=== PATIENT | female | born 1955 | race Caucasian/White ===

== ENCOUNTER 2019-10-04 12:49 | Outpatient (CLI) | payer MEDICARE, SELFPAY ==
--- NOTE | ~2019-10-04 | DEXA_ITS ---
Bone Density Report Name: Elise Leonardo Age: 64 Sex: Female Ethnicity: White Date of : 1955 Indication: postmenopausal; height loss; cancer; hysterectomy; Referring Provider: BRINA BORJA Study: Bone densitometry was performed. Exam Date: October 04, 2019 Accession number: [id number] Bone Density: Region BMD T-score Z-score Classification AP Spine (L1-L4) 0.965 -0.7 1.1 Normal Femoral Neck (Left) 0.822 -0.2 1.3 Normal Total Hip (Left) 1.001 0.5 1.7 Normal Total Hip Bilateral Avg 0.987 0.4 1.6 Normal Femoral Neck (Right) 0.907 0.5 2.1 Normal Total Hip (Right) 0.971 0.2 1.5 Normal World Health Organization criteria for BMD impression classify patients as: Normal (T-score at or above -1.0), Osteopenia (T-score between -1.0 and -2.5), or Osteoporosis (T-score at or below -2.5). 10-year Fracture Risk: FRAX not reported because: All T-scores for Spine Total, Hip Total, Femoral Neck at or above -1.0 Previous Exams: Region Exam Age BMD T-score BMD Change BMD Change Date g/cm2 vs Baseline vs Previous AP Spine(L1-L4) 10/04/2019 64 0.965 -0.7 -0.140(-12.7%) -0.090(-8.5%)# 09/09/2012 57 1.055 0.1 -0.050(-4.5%)# -0.050(-4.5%)# 01/27/2008 53 1.105 0.5 Total Hip(Left) 10/04/2019 64 1.001 0.5 -0.076(-7.0%)# -0.030(-2.9%)# 09/09/2012 57 1.031 0.7 -0.046(-4.3%)# -0.046(-4.3%)# 01/27/2008 53 1.077 1.1 Total Hip(Right) 10/04/2019 64 0.971 0.2 -0.100(-9.3%)# -0.061(-5.9%)# 09/09/2012 57 1.032 0.7 -0.039(-3.6%)# -0.039(-3.6%)# 01/27/2008 53 1.071 1.1 *Denotes significance at 95% confidence level, LSC for AP Spine = 0.022 g/cm2, LSC for Total Hip = 0.027 g/cm2 Clinical Information Provided by Patient: Has used the following medications: Vitamin D Has the following medical conditions: Cancer, Hysterectomy Patient maximum height was 68 Menopause Age: 41 Drinks caffeinated beverages Onset of menses at age 12 Number of children 0 Impression: The patient has normal bone mass. No significant bone loss was observed. Discussion: BONE DENSITY IS ABOVE THE MINIMUM DESIRABLE LEVEL AT ALL SKELETAL SITES TESTED. This patient?s bone mineral density is above the minimum desirable level (T-score -1.0 or better) at all sites measured. The patient should follow a healthful lifestyle (good nutrition with adequate calcium and vitamin D, and appropriate weight-bearing exercise). Follow-Up: Consider repeating thi
== END 2019-10-04 12:50 | disposition home or self-care (01) ==
LOC: ANHIMG 13:01
PROVIDERS: Visit Provider Internal Medicine Medical Oncology
DX: C50.911 Malignant neoplasm of unspecified site of right female breast (principal); Z17.0 Estrogen receptor positive status [ER+]; Z79.83 Long term (current) use of bisphosphonates
CPT/HCPCS: 77080

== ENCOUNTER 2023-05-28 11:44 | Outpatient (CLI) | payer MEDICARE, SELFPAY ==
[2023-05-28 12:38] LABS: Basophils Percent Auto 0.4 % (0.2-1.2); Eosinophils Absolute Auto 0.2 K/mm3 (0-0.3); Eosinophils Percent Auto 3.1 % (0-4.4); Hematocrit 47.2 % (37.0-47.0); Hemoglobin 15.1 g/dL (12.0-15.0); Immature Granulocyte Absolute 0.03 K/mm3 (0.00-0.031); Immature Granulocyte Percent A 0.4 % (0-0.5); Lymphocytes Percent Auto 27.9 % (18.3-44.2); Mean Corpuscular Hemoglobin 29.3 pg (26-34); Mean Corpuscular Volume 91.7 fl (80-100); Mean Platelet Volume 11.9 fl (7.4-10.4); Monocytes Absolute Auto 0.6 K/mm3 (0.1-0.6); Monocytes Percent Auto 7.9 % (2.6-8.5); Neutrophils Absolute Auto 4.3 K/mm3 (1.3-6.7); Neutrophils Percent Auto 60.3 % (45.5-73.1); Platelet Count Result 191 k/mm3 (150-375); Red Blood Count 5.15 M/mm3 (4.2-5.4); Red Cell Distribution Width 13.4 % (11.5-14.5); White Blood Count 7.2 K/mm3 (4.5-10.0)
[2023-05-28 13:12] LABS: Hemoglobin A1C 8.6 % (<5.7)
[2023-05-28 13:22] LABS: Alanine Aminotransferase 27 U/L (6-35); Albumin Level 4.2 g/dL (3.5-5.1); Alkaline Phosphatase 75 U/L (38-126); Anion Gap 10 mmol/L (8-16); Aspartate Amino Transferase 21 U/L (14-36); Bilirubin,Total 0.7 mg/dL (0.2-1.3); Blood Urea Nitrogen 18 mg/dL (7-17); Calcium 9.1 mg/dL (8.4-10.2); Carbon Dioxide 28 mmol/L (22-30); Chloride 102 mmol/L (98-107); Estimated Glomerular Filt Rate > 60; Glucose 200 mg/dL (65-110); Potassium 3.7 mmol/L (3.4-5.0); Sodium 140 mmol/L (137-145)
[2023-05-30 14:43] LABS: Arsenic, Blood <3 mcg/L (<23); Lead, Blood <1.0 mcg/dL (<3.5); Mercury, Blood <4 mcg/L (<=10)
[2023-05-31 12:07] LABS: Red Blood Cell Folate 567 ng/mL RBC (>280)
[2023-06-01 14:01] LABS: Vitamin B6 20.6 ng/mL (2.1-21.7)
[2023-06-02 12:07] LABS: SS-A <1.0; SS-B <1.0
[2023-06-04 06:10] LABS: Anti Nuclear Antibody Pattern Nuclear, Speckled
[2023-06-10 14:55] LABS: Collection Sample Blood
== END 2023-05-28 11:45 | disposition home or self-care (01) ==
PROVIDERS: Visit Provider Student in an Organized Health Care Education/Training Program
DX: E11.9 Type 2 diabetes mellitus without complications (principal); G62.9 Polyneuropathy, unspecified
CPT/HCPCS: 36415; 80053; 82175; 82607; 82747; 83036; 83655; 83825; 84207; 84443; 85025; 86038; 86039; 86235; 86334; 86335

== ENCOUNTER 2024-03-16 13:37 | Outpatient (CLI) | payer MEDICARE, SELFPAY ==
[2024-03-16 14:03] LABS: Basophils Absolute Auto 0.1 K/mm3 (0.0-0.1); Basophils Percent Auto 0.6 % (0.2-1.2); Eosinophils Absolute Auto 0.2 K/mm3 (0-0.3); Hematocrit 47.7 % (37.0-47.0); Hemoglobin 15.6 g/dL (12.0-15.0); Immature Granulocyte Absolute 0.05 K/mm3 (0.00-0.031); Immature Granulocyte Percent A 0.5 % (0-0.5); Lymphocytes Absolute Auto 2.64 K/mm3 (0.9-3.2); Lymphocytes Percent Auto 25.1 % (18.3-44.2); Mean Corpuscular HGB Conc 32.7 g/dl (32-36); Mean Corpuscular Hemoglobin 29.9 pg (26-34); Mean Corpuscular Volume 91.6 fl (80-100); Mean Platelet Volume 11.1 fl (7.4-10.4); Monocytes Absolute Auto 0.9 K/mm3 (0.1-0.6); Monocytes Percent Auto 8.7 % (2.6-8.5); Neutrophils Absolute Auto 6.6 K/mm3 (1.3-6.7); Neutrophils Percent Auto 63.1 % (45.5-73.1); Platelet Count Result 294 k/mm3 (150-375); Red Blood Count 5.21 M/mm3 (4.2-5.4); Red Cell Distribution Width 13.3 % (11.5-14.5); White Blood Count 10.5 K/mm3 (4.5-10.0)
[2024-03-16 16:33] LABS: Alanine Aminotransferase 29 U/L (6-35); Albumin Level 4.4 g/dL (3.5-5.1); Alkaline Phosphatase 71 U/L (38-126); Anion Gap 14 mmol/L (4-12); Aspartate Amino Transferase 25 U/L (14-36); Bilirubin,Total 0.5 mg/dL (0.2-1.3); Blood Urea Nitrogen 25 mg/dL (7-17); Calcium 9.9 mg/dL (8.4-10.2); Carbon Dioxide 25 mmol/L (22-30); Chloride 98 mmol/L (98-107); Estimated Glomerular Filt Rate > 60; Glucose 209 mg/dL (65-110); Potassium 3.8 mmol/L (3.4-5.0); Sodium 137 mmol/L (137-145)
[2024-03-16 17:04] LABS: Immunoglobulin A 346 mg/dL (70-400); Immunoglobulin G 811 mg/dL (700-1600); Immunoglobulin M 160 mg/dL (40-230)
[2024-03-18 03:43] LABS: Protein, Total 7.2 g/dL (6.1-8.1)
[2024-03-18 11:53] LABS: Lambda Light Chain 16.1 mg/L (5.7-26.3)
[2024-03-24 15:13] LABS: Albumin 4.2 g/dL (3.8-4.8); Alpha 1 Globulin 0.3 g/dL (0.2-0.3); Alpha 2 Globulin 0.9 g/dL (0.5-0.9); Beta 1 Globulin 0.5 g/dL (0.4-0.6); Gamma Globulin 0.8 g/dL (0.8-1.7)
== END 2024-03-16 13:38 | disposition home or self-care (01) ==
LOC: ANHLAB 13:40
PROVIDERS: Visit Provider Internal Medicine Hematology & Oncology
DX: D72.9 Disorder of white blood cells, unspecified (principal)
CPT/HCPCS: 36415; 80053; 82784; 83883; 84155; 84165; 85025

== ENCOUNTER 2024-03-16 14:54 | Outpatient (CLI) | payer MEDICARE, SELFPAY ==
--- NOTE | ~2024-03-16 | XR_ITS ---
EXAMINATION: XR bone survey comp/metastic DATE: 03/16/2024 16:01 INDICATION: Disorder of white blood cells, unspecified. Plasma cell abnormality. TECHNIQUE: 31 views of a skeletal survey were obtained. COMPARISON: None. FINDINGS: There are surgical clips in right axilla. There is severe cervical spondylosis. There is mo derate thoracic spondylosis and severe lower lumbar spondylosis. There are surgical clips overlying t he abdomen and pelvis. IMPRESSION: 1. No evidence of multiple myeloma. Reviewed, dictated and finalized at location A.
== END 2024-03-16 14:55 | disposition home or self-care (01) ==
LOC: ANHIMG 15:01
PROVIDERS: Visit Provider Internal Medicine Hematology & Oncology
DX: D72.9 Disorder of white blood cells, unspecified (principal)
CPT/HCPCS: 36415; 77075; 80053; 82784; 83883; 84155; 84165; 85025

== ENCOUNTER 2024-12-14 10:27 | Outpatient (CLI) | payer MEDICARE, SELFPAY ==
--- OUTSIDE RECORDS SUMMARY | 2024-12-14 10:36 | XMS_ITS | Encounter Summary ---
Author Organization [facility] Address 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 Oncology and Hematology [place] [address] [place] [address] [facility] [address] [place] [address] Roshan Gan MD [address] [facility] [address] [place] [address] documented as of this encounter Visit Diagnoses Not on filedocumented in this encounter Additional Health Concerns Infection Onset Date Last Indicated Resolved Time R/O COVID-19 07/19/2020 07/19/2020 07/26/2021 9:08 PM FUR BLOWING MACHINE OPERATOR documented as of this encounter Care Teams Cocoa Bean Cleaner Relationship Specialty Start Date End Date Janusz Soto MD PCP - General 08/30/08 documented as of this encounter
--- OUTSIDE RECORDS SUMMARY | 2024-12-14 10:36 | XMS_ITS | Encounter Summary ---
Author Organization [facility] Address 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 Oncology and Hematology - [place] [address] [place] [address] [facility] [address] [place] [address] Roshan Gan MD [address] [facility] [address] [place] [address] documented as of this encounter Procedures Procedure Name Priority Date/Time Associated Diagnosis Comments CBC WITH DIFFERENTIAL Routine 11/03/2005 5:55 PM CDT CBC WITH DIFFERENTIAL Routine 11/03/2005 5:55 PM CDT COMPREHENSIVE METABOLIC PANEL Routine 11/03/2005 5:55 PM CDT documented in this encounter Results * CBC WITH DIFFERENTIAL (11/03/2005 5:55 PM CDT) NEUTROPHILS 68 45 - 70 % INTERFAC E SYSTEM LYMPHOCYTES 20 16 - 45 % INTERFAC E SYSTEM MONOCYTES 9 3 - 13 % INTERFACE SYSTEM EOSINOPHILS 2 0 - 7 % INTERFAC E SYSTEM BASOPHILS 0 0 - 2 % INTERFACE SYSTEM NEUTROPHIL ABSOLUTE 4.26 1.90 - 7.00 K/uL INTERFACE SYSTEM LYMPHOCYTE ABSOLUTE 1.28 0.70 - 4.50 K/uL INTERFACE SYSTEM MONOCYTE ABSOLUTE 0.57 0.10 - 1.30 K/uL INTERFACE SYSTEM EOSINOPHIL ABSOLUTE 0.13 0.00 - 0.70 K/uL INTERFACE SYSTEM BASOPHILS ABSOLUTE 0.02 0.00 - 0.20 K/uL INTERFACE SYSTEM 11/03/2005 5:55 PM CDT Janusz Soto MD HEMATOLOGY ORDERABLES F inal Result Performing Organization Address City/[facility] Co de Phone Number INTERFACE SYSTEM Refer to clinic/hospital department * (ABNORMAL) CBC WITH DIFFERENTIAL (11/03/2005 5:55 PM CDT) Pathologist [facility] WBC 6.3 4.0 - 9.8 K/uL INTERFACE SYSTEM RBC 5.14(H) 3.90 - 4.90 M/uL INTERFACE SYSTEM HEMOGLOBIN 15.3(H) 11.8 - 14.8 g/dL INTERFACE SYSTEM HEMATOCRIT 45.2(H) 35.5 - 44.0 % INTERFACE SYSTEM MCV 87.9 82.0 - 99.0 fL INTERFACE SYSTEM MCH 29.8 27.2 - 32.6 pg INTERFACE SYSTEM MCHC 33.8 31.5 - 35.5 % INTERFACE SYSTEM RDW 13.8 11.5 - 14.5 % INTERFACE SYSTEM RDW-STDEV 44.9 37.1 - 48.7 fL INTERFACE SYSTEM PLATELETS 232 140 - 350 K/uL INTERFACE SYSTEM Comment:WBC and Platelets ve rified by smear review. MPV 11.6 9.3 - 12.4 fL INTERFACE SYSTEM 11/03/2005 5:55 PM CDT Janusz Soto MD HEMATOLOGY ORDERABLES F inal Result Performing Organization Address City/[facility]/ZIP Co de Phone Number INTERFACE SYSTEM Refer to clinic/hospital department * (ABNORMAL) COMPREHENSIVE METABOLIC PANEL (11/03/2005 5:55 PM CDT) GLUCOSE 131(H) 65 - 109 mg/dL INTERFACE SYSTEM CREATININE 0.8 0.4 - 1.2 mg/dL INTERFACE SYSTEM CALCIUM 9.2 8.6 - 10.2 mg/dL INTERFACE SYSTEM AST 24 12 - 32 U/L INTERFACE SYSTEM ALKALINE PHOSPHATASE 67 35 - 104 U/L INTERFACE SYSTEM ALT 26 0 - 31 U/L INTERFACE SYSTEM BILIRUBIN TOTAL 0.2 0.2 - 1.0 mg/dL INTERFACE SYSTEM ALBUMIN 4.4 3.4 - 4.8 g/dL INTERFACE SYSTEM TOTAL PROTEIN 7.5 6.3 - 8.6 g/dL INTERFACE SYSTEM BUN 16 6 - 20 mg/dL INTERFACE SYSTEM SODIUM 136 135 - 145 mmol/L INTERFACE SYSTEM POTASSIUM 3.6 3.5 - 4.9 mmol/L INTERFACE SYSTEM CHLORIDE 98 96 - 108 mmol/L INTERFACE SYSTEM CO2 26 22 - 30 mmol/L INTERFACE SYSTEM 11/03/2005 5:55 PM CDT us Janusz Soto MD CHEMISTRY ORDERABLES Fi nal Result INTERFACE SYSTEM Refer to clinic/hospital department documented in this encounter Visit Diagnoses Not on filedocumented in this encounter Additional Health Concerns Infection Onset Date Last Indicated Resolved Time R/O COVID-19 07/19/2020 07/19/2020 07/26/2021 9:08 PM DINING ROOM MAID documented as of this encounter Care Teams Respite Care Provider Relationship Specialty Start Date End Date Janusz Soto MD PCP - General 08/30/08 documented as of this encounter
--- OUTSIDE RECORDS SUMMARY | 2024-12-14 10:36 | XMS_ITS | Encounter Summary ---
Author Organization [facility] Address [address] [facility] Attn: Epic Prelude ADT [place]IL[place] EDUARDO [address] Care Team Providers Care Dairy Chemist Name Role Phone Janusz Soto MD Primary Care Provider Unavailable Encounter Details Date Type Department Care Team (Late st Contact Info) Description 12/24/1996 Outpatient Historical Conversion, History Janusz Soto MD NO ADDRESS ON FILE Social History Tobacco Use Types Packs/Day Years Used Date Smoking Tobacco: Never Assessed Comments Unknown Sex and Gender Information Value Date Recorded Sex Assigned at Not on file Legal Sex Female 4:12 AM VITAMIN MANAGER Gender Identity Not on file Sexual Orientation Not on file documented as of this encounter Plan of Treatment Upcoming Encounters Date Type Department Care Team (Late st Contact Info) Description 12/21/2024 1:15 PM CDT Office Visit [facility] Oncology and Hematology [place] [address] [place] [address] [facility] [address] [place] [address] Roshan Gan MD [address] [facility] [address] [place] [address] documented as of this encounter Visit Diagnoses Not on filedocumented in this encounter Additional Health Concerns Infection Onset Date Last Indicated Resolved Time R/O COVID-19 07/19/2020 07/19/2020 07/26/2021 9:08 PM VITAMIN MANAGER documented as of this encounter Care Teams Dairy Chemist Relationship Specialty Start Date End Date Janusz Soto MD PCP - General 08/30/08 documented as of this encounter
--- OUTSIDE RECORDS SUMMARY | 2024-12-14 10:36 | XMS_ITS | Encounter Summary ---
Author Organization [facility] Address 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 [address] [place] [address] documented as of this encounter Visit Diagnoses Not on filedocumented in this encounter Additional Health Concerns Infection Onset Date Last Indicated Resolved Time R/O COVID-19 07/19/2020 07/19/2020 07/26/2021 9:08 PM FORM MAKER PLASTER documented as of this encounter Care Teams Carton Stenciler Relationship Specialty Start Date End Date Janusz Soto MD PCP - General 08/30/08 documented as of this encounter
--- OUTSIDE RECORDS SUMMARY | 2024-12-14 10:36 | XMS_ITS | Clinical Summary ---
Author Organization [facility] Address [address] [place] [address] Phone Care Team Providers Care Hydroelectric Component Machinist Name Role Phone Janusz Soto MD Primary Care Provider Unavailable Allergies No known active allergies Medications pregabalin (LYRICA) 200 mg Capsule Take 150 mg by mouth daily at bedtime. 3 Active atorvastatin (LIPITOR) 10 mg tabletIndication s:Normal routine physical examination take 1 tablet by mouth every day 100 Tablet 3 4 Active hydroCHLOROthiaz alcira 25 mg tabletIndication s:Normal routine physical examination take 1 tablet by mouth every day 100 Tablet 3 4 Active DULoxetine (CYMBALTA) 30 mg Capsule, Delayed Release(E.C.) Take 30 mg by mouth daily. Active blood sugar diagnostic (Ascensia CONTOUR) StripIndications :Diabetes mellitus type 2, diet-controlled ([facility]) Use when checking blood sugar one time daily. DX: E11.9 Use when checking blood sugar one time daily. DX: E11.9 100 Strip 3 4 Active metFORMIN (GLUCOPHAGE XR) 500 mg Extended Release 24 hour tablet Take 2 Tablets (1,000 mg) by mouth 2 times daily with meals. 360 Tablet 3 4 Active multivitamin (DAILY-LEE) tablet Take 1 Tablet by mouth daily. Active aspirin (MIKAYLA CHEWABLE) 81 mg Tablet, Chewable Take 81 mg by mouth daily. Active levothyroxine 125 mcg tablet 1 tablet daily and 4 days a week take extra half tablet. 115 Tablet 2 4 Active omeprazole (PriLOSEC) 40 mg Capsule, Delayed Release(E.C.) TAKE 1 CAPSULE BY MOUTH EVERY DAY 100 Capsule 3 4 Active fluticasone propionate (FLONASE) 50 mcg/spray [place], Suspension nasal inhalerIndicatio ns:Normal routine physical examination USE 1 SPRAY INTO EACH NOSTRIL TWICE A DAY 48 mL 4 4 Active amoxicillin-clav ulanate (AUGMENTIN) 500-125 mg tablet Take 1 Tablet by mouth every 12 hours. 14 Tablet 5 Active Active Problems Patient Care Coordination No te Formatting of this note migh t be different from the original. Primary Care: Janusz Soto MD [place]: [place] [address] [facility] [address] [place] [address] Other: Dr. Shwetha Meza MD Problem Noted Date Diagnosed Date History of 2019 novel coronavirus disease (COVID -19) 08/25/2020 Overweight 08/25/2020 Anxiety state 08/25/2020 Hyperglycemia 09/06/2016 S/P right mastectomy 02/01/2016 Esophageal reflux 05/18/2012 Other hyperlipidemia 04/12/2011 Unspecified essential hypertension 04/12/2011 Obesity, unspecified 04/12/2011 Toxic diffuse goiter without mention of thyrotoxic crisis or storm 04/10/2011 Hypothyroidism 04/10/2011 Osteoporosis, unspecified 04/10/2011 Personal history of malignant neoplasm of breast 04/10/2011 HTN (hypertension) Thyroid disease Hay fever Resolved Problems Problem Noted Date Diagnosed Date Resolved Date Severe obesity (BMI 35.0-39. 9) with comorbidity 02/01/2016 05/11/2019 Malignant neoplasm of female breast 05/11/2019 Overview (12/20/2012): 07/2006; invasive ductal right; T2N2M0- stage II; s/p mast,RT, TRAM recon Encounters Date Type Department Care Team Description 12/13/2024 External Device Data ST[facility] ABSTRACTION Provider, Abstract 12/08/2024 External Device Data ST[facility] ABSTRACTION Provider, Abstract 12/07/2024 External Device Data [facility] ABSTRACTION Provider, Abstract 12/07/2024 External Device Data [facility] ABSTRACTION Provider, Abstract 12/06/2024 External Device Data [facility] ABSTRACTION Provider, Abstract 10/05/2024 External Device Data [facility] ABSTRACTION Provider, Abstract 09/24/2024 External Device Data STL ABSTRACTION Provider, Abstract 09/23/2024 External Device Data [facility] ABSTRACTION Provider, Abstract 09/20/2024 External Device Data STL ABSTRACTION Provider, Abstract from Last 3 Months Immunizations Immunization Administration Dates Next Due (PREVNAR 13)(6 WKS UP) PNEUM OCOCCAL CONJUGATE (PCV13) 0.5 ML, IM 05/11/2019 INFLUENZA VACCINE QUADRIVALE NT 3 YR UP PF IM 06/29/2014 INFLUENZA VACCINE QUADRIVALE NT 6 MOS UP PF IM 05/16/2018,04/29/2017,05/02/2016,2014 Influenza Seasonal Unspecifi ed Formulation IM 05/24/2015 Influenza Vaccine 18+ C.derived Pf Im 04/30/2017 Influenza Vaccine Split 3+ Yrs IM 04/05/2013 Influenza, Unspecified Formulation 05/11/2019, Family History Medical History Relation Name Comments Healthy Brother Hodgkin's lymphoma Brother Heart Disease Father Heart Disease Mother Other Mother diabets Breast Cancer Neg Hx Ovarian Cancer Neg Hx Relation Name Status Comments Brother Father Mother Social History Tobacco Use Types Packs/Day Years Used Date Smoking Tobacco: Never Smokeless Tobacco: Never Tobacco Cessation:Counseling Given: Not Answered Alcohol Use Standard Drinks/Week Comments Yes 0 (1 standard drink = 0.6 oz pur e alcohol) rare Financial Resource Strain Answer Date R ecorded How hard is it for you to pa y for the very basics like food, housing, medical care, and heating? Not hard at all 10/24/2022 Food Insecurity Answer Date Recorded In the past 12 months, have you worried that your food would run out before you had money to buy more? Never true 10/24/2022 In the past 12 months, did y ou run out of food and didn't have money to buy more? Never true 10/24/2022 Transportation Needs Answer Date Record ed In the past 12 months, has l ack of transportation kept you from medical appointments or from getting medications? No 10/24/2022 Lack of Transportation (Non-Medical) Not on file 10/24/2022 Comments No Sex and Gender Information Value Date Recorded Sex Assigned at Not on file Legal Sex Female 4:12 AM MINE INSPECTOR Gender Identity Not on file Sexual Orientation Not on file Occupation Industry Job Start Date Job End Date Not on file Not on file Not on file Not on file Last Filed Vital Signs Vital Sign Reading Time Taken Comments Blood Pressure 116/72 08/08/2024 8:57 AM MINE INSPECTOR Pulse 92 08/08/2024 8:57 AM MINE INSPECTOR Temperature 36.6 C (97.9 F) 08/08/2024 8:57 AM MINE INSPECTOR Respiratory Rate 16 08/08/2024 8:57 AM MINE INSPECTOR Oxygen Saturation 96% 08/08/2024 8:57 AM MINE INSPECTOR Inhaled Oxygen Concentration - - Weight 106.6 kg (235 lb) 08/08/2024 8:57 AM MINE INSPECTOR Height 172.7 cm (5' 8) 08/08/2024 8:57 AM MINE INSPECTOR Body Mass Index 35.73 08/08/2024 8:57 AM MINE INSPECTOR Plan of Treatment Upcoming Encounters Date Type Department Care Team (Late st Contact Info) Description 12/21/2024 1:15 PM CDT Office Visit [facility] Oncology and Hematology - [place] [address] [facility] [address] [place] [address] Roshan Gan MD [address] [facility] [address] [place] [address] Health Maintenance Due Date Last Done Comments DIABETES ANNUAL RETINAL EXAM 01/28/1972 DTAP/TDAP/TD VACCINES (1 - Tdap) 1973 FIT-DNA Q 3 years 1999 FIT/FOBT Q 1 year 1999 Flex Sig/CT Colonography Q 5 years 1999 ZOSTER VACCINE (1 of 2) 01/28/2004 RSV VACCINE (60+ or ) (1 - Risk 60-74 years 1-dose series) 2014 COLORECTAL SCREENING 07/19/2018 07/19/2008 (Previously completed) Colorectal Cancer Screening 07/19/2018 PNEUMOCOCCAL VACCINE 50+ YEA RS (2 of 2 - PPSV23) 07/06/2019 05/11/2019 DIABETES ANNUAL FOOT EXAM 08/25/2021 08/25/2020 COVID-19 Vaccine (4 - 2023-2 5 season) 2024 04/25/2021, 09/21/2020, 08/27/2020 OSTEOPOROSIS SCREENING 10/03/2024 10/04/2019 DIABETES HBA1C Q 6 MONTHS 02/05/20255, 08/08/2024, 08/06/2024, Additional history exists DIABETES MICROALBUMIN ANNUAL SCREEN 03/09/2025 03/09/2024, 11/01/2021, 08/25/2020, Additional history exists LDL CHOLESTEROL ANNUAL 03/09/2025 4, 10/24/2022, 11/01/2021, Additional history exists BREAST CANCER SCREENING 04/05/2025 04/05/20 24, 04/05/2024, 03/31/2023, Additional history exists INFLUENZA VACCINE Completed 08/08/2024, , 04/30/2017, Additional history exists Procedures Procedure Name Priority Date/Time Associated Diagnosis Comments POC HEMOGLOBIN A1C Routine 08/08/2024 8: 25 AM MINE INSPECTOR Uncontrolled type 2 diabetes mellitus with hyperglycemia (CMS/HCC) MAMMO DIAG UNI LEFT 3D DEBBIE W OR WO CAD Routine 04/05/2024 10:21 AM CDT Personal history of malignant neoplasm of breast S/P right mastectomy LIPID PANEL Routine 03/09/2024 12:51 PM CDT Other hyperlipidemia Controlled type 2 diabetes mellitus without complication, without long-term current use of insulin (CMS/HCC) MICROALBUMIN/CREATI NINE RATIO, RANDOM UR Routine 03/09/2024 12:48 PM CDT Controlled type 2 diabetes mellitus without complication, without long-term current use of insulin (CMS/HCC) from Last 3 Months or Most Recently Relevant to Health Maintenance Results * (ABNORMAL) POC HEMOGLOBIN A1C (08/08/2024 8:25 AM MINE INSPECTOR) HGB A1C POC 9.8(A) 4.0 - 6.0 % [facility] KIT LOT NUMBER POC 788 [facility] KIT EXP DATE POC [address] [facility] Blood, capillary 08/08/2024 8:25 AM MINE INSPECTOR us Janusz Soto MD POINT OF CARE TESTING F inal Result [facility] CLIA# [id number] [address] [facility], [place] [address] * MAMMO DIAG UNI LEFT 3D DEBBIE W OR WO CAD (04/05/2024 10:21 AM CDT) Anatomical Region Laterality Modality Breast Left Mammography 04/05/2024 10:2 1 AM CDT Impressions 04/05/2024 10:58 AM CDT IMPRESSION: No mammographic evidence of malignancy. RECOMMENDATIONS: Routine screening mammogram in one year. DICTATION LOCATION: [facility] Narrative 04/05/2024 10:58 AM CDT EXAM: LEFT BREAST FULL-FIELD DIGITAL DIAGNOSTIC MAMMOGRAM WITH CAD WITH 3D TOMOSYNTHESIS DATE: 04/05/2024 10:21 AM HISTORY: Personal history of right breast cancer with mastectomy TECHNIQUE: Full-field digital mammography was performed on the left breast. Low dose full field digital breast tomosynthesis examination was performed with 2D and 3D acquisitions. Examination is read in conjunction with computer aided detection. COMPARISON: 2022, 2021, 2020 BREAST COMPOSITION: There are scattered areas of fibroglandular density. FINDINGS: No new mass, suspicious microcalcifications or architectural distortion. OVERALL FINAL ASSESSMENT: BI-RADS CATEGORY 1 : Negative Procedure Note Cameron Burden MD - 04/05/2024 EXAM: LEFT BREAST FULL-FIELD DIGITAL DIAGNOSTIC MAMMOGRAM WITH CAD WITH 3D TOMOSYNTHESIS DATE: 04/05/2024 10:21 AM HISTORY: Personal history of right breast cancer with mastectomy TECHNIQUE: Full-field digital mammography was performed on the left breast. Low dose full field digital breast tomosynthesis examination was performed with 2D and 3D acquisitions. Examination is read in conjunction with computer aided detection. COMPARISON: 2022, 2021, 2020 BREAST COMPOSITION: There are scattered areas of fibroglandular density. FINDINGS: No new mass, suspicious microcalcifications or architectural distortion. OVERALL FINAL ASSESSMENT: BI-RADS CATEGORY 1 : Negative IMPRESSION: No mammographic evidence of malignancy. RECOMMENDATIONS: Routine screening mammogram in one year. DICTATION LOCATION: [facility] Shwetha Meza MD MAMMO ORDERABLES Final R esult * (ABNORMAL) LIPID PANEL (03/09/2024 12:51 PM CDT) CHOLESTEROL 218(H) <200 mg/dL [facility] HDL 40(L) > OR = 50 mg/dL [facility] Eugenia Marvin TRIGLYCERIDE 202(H) <150 mg/dL [facility] Marvin Comment: If a non-fasting specimen was collected, consider repeat triglyceride testing on a fasting specimen if clinically indicated. Donna et al. J. of Clin. Lipidol. 2015;9:129-169. LDL CALCULATED 144(H) mg/dL (calc) Grisel [facility] Eugenia Marvin Comment: Reference range: <100 Desirable range <100 mg/dL for primary prevention; <70 mg/dL for patients with CHD or diabetic patients with > or = 2 CHD risk factors. LDL-C is now calculated using the Rayray calculation, which is a validated novel method providing better accuracy than the Friedewald equation in the estimation of LDL-C. Cabrera BLAIR et al. MALLORY. 2013;310(19): 4824-6331 (http://education.[facility]/faq/VHA843) CHOL/HDL RATIO 5.5(H) <5.0 (calc) Grisel Marvin NON-HDL CHOLESTEROL 178(H) <130 mg/dL (calc) Grisel [facility] Eugenia Marvin Comment: For patients with diabetes plus 1 major ASCVD risk factor, treating to a non-HDL-C goal of <100 mg/dL (LDL-C of <70 mg/dL) is considered a therapeutic option. Test Performed at: [facility] [place] [address] [place] [address] Lyla Alva Blood 03/09/2024 12:5 1 PM CDT 03/09/2024 12:52 PM CDT us Janusz Soto MD CHEMISTRY ORDERABLES Fi nal Result [facility] [phone] [place] [address] [place] [address] * MICROALBUMIN/CREATININE RATIO, RANDOM UR (03/09/2024 12:48 PM CDT) Creatinine, Urine 271 20 - 275 mg/dL [facility] MICROALBUMIN, URINE 1.6 See Note: mg/dL [facility] Comment: Reference Range: Reference Range Not established MICROALBUMIN/CREAT RATIO, UR 6 <30 mg/g creat [facility] Comment: The ADA defines abnormalities in albumin excretion as follows: Albuminuria Category Result (mg/g creatinine) Normal to Mildly increased <30 Moderately increased 30-299 Severely increased > OR = 300 The ADA recommends that at least two of three specimens collected within a 3-6 month period be abnormal before considering a patient to be within a diagnostic category. Test Performed at: [facility] [address] [place] [address] Lyla Valdez MD Urine URINE SPECIMEN OBTAINED BY CLEAN CATCH PROCEDURE / Unknown 03/09/2024 12:48 PM CDT 03/09/2024 12:49 PM CDT us Janusz Soto MD URINE ORDERABLES Final Result [facility] [phone] [facility] [id number] [place] [address] from Last 3 Months or Most Recently Relevant to Health Maintenance Insurance MEDICARE PART A AND B [facility] SUPP MEDICARE PART A AND B [facility] SUPP Care Teams Hydroelectric Component Machinist Relationship Specialty Start Date End Date Janusz Soto MD PCP - General 08/30/08
--- OUTSIDE RECORDS SUMMARY | 2024-12-14 10:36 | XMS_ITS | Encounter Summary ---
Author Organization [facility] Address [address] [place] [address] Care Team Providers Care Quality Lab Technician Name Role Phone Janusz Soto MD Primary Care Provider Unavailable Encounter Details Date Type Department Care Team (Late Contact Info) Description 12/13/2024 External Device Data ST[facility] ABSTRACTION Provider, Abstract NO ADDRESS ON FILE Social History Tobacco Use Types Packs/Day Years Used Date Smoking Tobacco: Never Smokeless Tobacco: Never Alcohol Use Standard Drinks/Week Comments Yes 0 [...] on file Legal Sex Female 4:12 AM APPLIED RESEARCH DIRECTOR Gender Identity Not on file Sexual Orientation Not on file Occupation Industry Job Start Date Job End Date Not on file Not on file Not on file Not on file documented as of this encounter Plan of Treatment Upcoming Encounters Date Type Department Care Team (Late Contact Info) Description 12/21/2024 1:15 PM CDT Office Visit [facility] Oncology and Hematology - [place] [address] [place] [address] Roshan Gan MD [address] [facility] [address] [place] [address] documented as of this encounter Visit Diagnoses Not on filedocumented in this encounter Care Teams Quality Lab Technician Relationship Specialty Start Date End Date Janusz Soto MD PCP - General 08/30/08 documented as of this encounter
--- OUTSIDE RECORDS SUMMARY | 2024-12-14 10:36 | XMS_ITS | Encounter Summary ---
Author Organization [facility] Address [address] [facility] Attn: Epic Prelude ADT [address] [place] [address] Care Team Providers Care Ornamental Metal Erector Name Role Phone Janusz Soto MD Primary Care Provider Unavailable Encounter Details Date Type Department Care Team (Late st Contact Info) Description 05/05/1998 Outpatient Historical Conversion, History Janusz Soto MD NO ADDRESS ON FILE Social History Tobacco Use Types Packs/Day Years Used Date Smoking Tobacco: Never Assessed Comments Unknown Sex and Gender Information Value Date Recorded Sex Assigned at Not on file Legal Sex Female 4:12 AM AUTOMOTIVE PRODUCT SPECIALIST Gender Identity Not on file Sexual Orientation Not on file documented as of this encounter Plan of Treatment Upcoming Encounters Date Type Department Care Team (Late st Contact Info) Description 12/21/2024 1:15 PM CDT Office Visit [facility] [place] Oncology and Hematology - [place] [address] [place] [address] [facility] [address] [place] [address] Roshan Gan MD [address] [facility] [address] [place] [address] documented as of this encounter Visit Diagnoses Not on filedocumented in this encounter Additional Health Concerns Infection Onset Date Last Indicated Resolved Time R/O COVID-19 07/19/2020 07/19/2020 07/26/2021 9:08 PM AUTOMOTIVE PRODUCT SPECIALIST documented as of this encounter Care Teams Ornamental Metal Erector Relationship Specialty Start Date End Date Janusz Soto MD PCP - General 08/30/08 documented as of this encounter
--- OUTSIDE RECORDS SUMMARY | 2024-12-14 10:36 | XMS_ITS | Encounter Summary ---
Author Organization [facility] Address [address] [place] [address] Care Team Providers Care Installer Helper Name Role Phone Janusz Soto MD Primary Care Provider Unavailable Encounter Details Date Type Department Care Team (Late st Contact Info) Description 12/07/2006 Outpatient Historical [facility], [address] Janusz Soto MD NO ADDRESS ON FILE Social History Tobacco Use Types Packs/Day Years Used Date Smoking Tobacco: Never Assessed Comments Unknown Sex and Gender Information Value Date Recorded Sex Assigned at Not on file Legal Sex Female 4:12 AM HOGSHEAD ROLLER Gender Identity Not on file Sexual Orientation Not on file documented as of this encounter Plan of Treatment Upcoming Encounters Date Type Department Care Team (Late st Contact Info) Description 12/21/2024 1:15 PM CDT Office Visit [facility] Oncology and Hematology - [place] [address] [place] [address] [facility] [address] [place] [address] Roshan Gan MD [address] [facility] [address] [place] [address] documented as of this encounter Procedures Procedure Name Priority Date/Time Associated Diagnosis Comments CBC WITH DIFFERENTIAL Routine 12/07/2006 1:27 PM CDT CBC WITH DIFFERENTIAL Routine 12/07/2006 1:27 PM CDT TSH Routine 12/07/2006 1:27 PM CDT LIPID PANEL Routine 12/07/2006 1:27 PM CDT COMPREHENSIVE METABOLIC PANEL Routine 12/07/2006 1:27 PM CDT documented in this encounter Results * CBC WITH DIFFERENTIAL (12/07/2006 1:27 PM CDT) NEUTROPHILS 65 45 - 70 % INTERFAC E SYSTEM LYMPHOCYTES 22 16 - 45 % INTERFAC E SYSTEM MONOCYTES 9 3 - 13 % INTERFACE SYSTEM EOSINOPHILS 4 0 - 7 % INTERFAC E SYSTEM BASOPHILS 0 0 - 2 % INTERFACE SYSTEM NEUTROPHIL ABSOLUTE 3.74 1.90 - 7.00 K/uL INTERFACE SYSTEM LYMPHOCYTE ABSOLUTE 1.24 0.70 - 4.50 K/uL INTERFACE SYSTEM MONOCYTE ABSOLUTE 0.53 0.10 - 1.30 K/uL INTERFACE SYSTEM EOSINOPHIL ABSOLUTE 0.22 0.00 - 0.70 K/uL INTERFACE SYSTEM BASOPHILS ABSOLUTE 0.02 0.00 - 0.20 K/uL INTERFACE SYSTEM 12/07/2006 1:27 PM CDT Janusz Soto MD HEMATOLOGY ORDERABLES E dited Performing Organization Address City/[facility] de Phone Number INTERFACE SYSTEM Refer to clinic/hospital department * CBC WITH DIFFERENTIAL (12/07/2006 1:27 PM CDT) WBC 5.8 4.0 - 9.8 K/uL INTERFACE SYSTEM RBC 4.76 3.90 - 4.90 M/uL INTERFACE SYSTEM HEMOGLOBIN 14.1 11.8 - 14.8 g/dL INTERFACE SYSTEM HEMATOCRIT 42.7 35.5 - 44.0 % INTERFACE SYSTEM MCV 89.7 82.0 - 99.0 fL INTERFACE SYSTEM MCH 29.6 27.2 - 32.6 pg INTERFACE SYSTEM MCHC 33.0 31.5 - 35.5 % INTERFACE SYSTEM RDW 14.4 11.5 - 14.5 % INTERFACE SYSTEM RDW-STDEV 46.7 37.1 - 48.7 fL INTERFACE SYSTEM PLATELETS 249 140 - 350 K/uL INTERFACE SYSTEM MPV 11.8 9.3 - 12.4 fL INTERFACE SYSTEM 12/07/2006 1:27 PM CDT Janusz Soto MD HEMATOLOGY ORDERABLES E dited Performing Organization Address [facility] de Phone Number INTERFACE SYSTEM Refer to clinic/hospital department * TSH (12/07/2006 1:27 PM CDT) TSH 2.80 0.27 - 4.20 uU/mL INTERFACE SYSTEM 12/07/2006 1:27 PM CDT Janusz Soto MD CHEMISTRY ORDERABLES Ed ited Performing Organization Address [facility] Phone Number INTERFACE SYSTEM Refer to clinic/hospital department * (ABNORMAL) LIPID PANEL (12/07/2006 1:27 PM CDT) CHOLESTEROL 207(H) 100 - 199 mg/dL INTERFACE SYSTEM TRIGLYCERIDE 131 10 - 149 mg/dL INTERFACE SYSTEM HDL 54 40 - 59 mg/dL INTERFACE SYSTEM CHOL/HDL RATIO 3.8 2.0 - 5.0 INTER FACE SYSTEM LDL CALCULATED 127(H) <=99 mg/dL INTERFACE SYSTEM LIPID PANEL COMMENT See Below INTERFACE SYSTEM Comment: The adult ATP and pediatric NCEP classifications for lipids are available on the [facility] Intranet at: [email or web address] Select: Lab Policies and Procedures Select: Reference Ranges - Lipids 12/07/2006 1:27 PM CDT Janusz Soto MD CHEMISTRY ORDERABLES Ed ited Performing Organization Address [facility] de Phone Number INTERFACE SYSTEM Refer to clinic/hospital department * (ABNORMAL) COMPREHENSIVE METABOLIC PANEL (12/07/2006 1:27 PM CDT) GLUCOSE 94 65 - 99 mg/dL INTERFACE SYSTEM CREATININE 0.73 0.51 - 0.95 mg/dL INTERFACE SYSTEM CALCIUM 9.6 8.4 - 10.2 mg/dL INTERFACE SYSTEM ALKALINE PHOSPHATASE 67 35 - 104 U/L INTERFACE SYSTEM AST 23 12 - 32 U/L INTERFACE SYSTEM ALT 29 0 - 31 U/L INTERFACE SYSTEM TOTAL PROTEIN 7.2 6.3 - 8.6 g/dL INTERFACE SYSTEM ALBUMIN 4.1 3.4 - 4.8 g/dL INTERFACE SYSTEM BILIRUBIN TOTAL 0.4 0.2 - 1.0 mg/dL INTERFACE SYSTEM BUN 14 6 - 20 mg/dL INTERFACE SYSTEM SODIUM 144 135 - 145 mmol/L INTERFACE SYSTEM POTASSIUM 4.5 3.5 - 4.9 mmol/L INTERFACE SYSTEM CHLORIDE 103 96 - 108 mmol/L INTERFACE SYSTEM CO2 31(H) 22 - 30 mmol/L INTERFACE SYSTEM GFR, >60 >=60 mL/min/1.7 sq meter INTERFACE SYSTEM GFR >60 >=60 mL/min/1.7 sq meter INTERFACE SYSTEM Comment: Estimated GFR rate interpretative information for both Americans and non- Americans is available on the [facility] Intranet at: [email or web address] Select: Lab Policies and Procedures Select: Reference Ranges - GFR 12/07/2006 1:27 PM CDT us Janusz Soto MD CHEMISTRY ORDERABLES Ed ited INTERFACE SYSTEM Refer to clinic/hospital department documented in this encounter Visit Diagnoses Not on filedocumented in this encounter Additional Health Concerns Infection Onset Date Last Indicated Resolved Time R/O COVID-19 07/19/2020 07/19/2020 07/26/2021 9:08 PM HOGSHEAD ROLLER documented as of this encounter Care Teams Installer Helper Relationship Specialty Start Date End Date Janusz Soto MD PCP - General 08/30/08 documented as of this encounter
--- OUTSIDE RECORDS SUMMARY | 2024-12-14 10:36 | XMS_ITS | Referral Summary ---
Author Organization [facility] Address [address] [place] [address] Care Team Providers Care Couture Alterations Dressmaker Name Role Phone Janusz Soto MD Primary Care Provider Kanchan Dixon INSPECTOR AUTOMATIC TYPEWRITER Unavailable [phone]- [phone] Allergies No known active allergies Medications fluticasone (FLONASE) 50 mcg/actuation nasal spray SPRAY 1 SPRAY INTO EACH NOSTRIL TWICE A DAY 3 8 Active hydroCHLOROthia zide (HYDRODIURIL) 25 mg tablet Take 1 tablet (25 mg total) by mouth daily 3 9 Active levothyroxine (SYNTHROID, LEVOTHROID) 125 mcg tablet Take 1 tablet (125 mcg total) by mouth daily 2 9 Active MULTIVITAMIN ORAL Take by mouth. Activ e omeprazole (PriLOSEC) 40 mg capsule Take by mouth daily 0 Active atorvastatin (LIPITOR) 10 mg tablet Take 1 tablet (10 mg total) by mouth 3 (three) times a day 90 tablet 1 2 Active pregabalin (LYRICA) 200 mg capsuleIndicati ons:Diabetic Peripheral Neuropathy,Vaso motor Symptoms associated with Menopause Take one capsule three times daily 3 capsule 2 3 Active metFORMIN XR (GLUCOPHAGE XR) 500 mg 24 hr tablet Take 2 tablets (1,000 mg total) by mouth [address] (CYMBALTA) 30 mg capsule 30 MG ORALLY TWICE A DAY Active aspirin 81 mg chewable tablet Take 1 tablet (81 mg total) by mouth daily Active clobetasoL (TEMOVATE) 0.05 % creamIndication s:Rash Apply topically 2 (two) times a day 60 g Active Active Problems Problem Noted Date Diagnosed Date Malignant neoplasm of right breast in female, estrogen receptor positive 09/09/2018 Immunizations Immunization Administration Dates Next Due Influenza, Quadrivalent, Spl it, Preservative Free, Intramuscular 05/16/2018,04/29/2017,05/02/2016,05/23,06/29/2014 Influenza, Trivalent, Cell Culture-based MDCK, Preservative Free, Antibiotic Free, Intramuscular 04/30/2017 Influenza, Trivalent, IM (MDV) 05/24/2015,2012 Influenza, Unspecified 05/11/2019,05/13/2018 Pfizer SARS-CoV-2 Monovalent Vaccination (12+ Yrs) PURPLE 04/25/2021,09/21/2020,08/27/2020 Pneumococcal Conjugate PCV 13 05/11/2019 Social History Tobacco Use Types Packs/Day Years Used Date Smoking Tobacco: Never Smokeless Tobacco: Never Alcohol Use Standard Drinks/Week Comments No 0 (1 standard drink = 0.6 oz pur e alcohol) Comments Unknown Sex and Gender Information Value Date Recorded Sex Assigned at Not on file Legal Sex Female 11:53 AM INTERPRETER AND TRANSLATOR Gender Identity Not on file Sexual Orientation Not on file Last Filed Vital Signs Vital Sign Reading Time Taken Comments Blood Pressure 134/84 08/15/2024 5:01 PM INTERPRETER AND TRANSLATOR Pulse 96 08/15/2024 5:01 PM INTERPRETER AND TRANSLATOR Temperature 36.8 C (98.3 F) 08/15/2024 5:01 PM INTERPRETER AND TRANSLATOR Respiratory Rate 24 08/15/2024 5:01 PM INTERPRETER AND TRANSLATOR Oxygen Saturation 96% 08/15/2024 5:01 PM INTERPRETER AND TRANSLATOR Inhaled Oxygen Concentration - - Weight 111.6 kg (246 lb) 08/15/2024 5:01 PM INTERPRETER AND TRANSLATOR Height 167.6 cm (5' 6) 09/09/2022 3:27 PM INTERPRETER AND TRANSLATOR Body Mass Index 39.71 09/09/2022 3:27 PM INTERPRETER AND TRANSLATOR Plan of Treatment Not on file Insurance MEDICARE [facility] MEDICARE BLUE CROSS MEDICARE SUPPLEMENT Care Teams Couture Alterations Dressmaker Relationship Specialty Start Date End Date Janusz Soto MD PCP - General 09/14/17 Kanchan Dixon NP [address] [place] [address] Nurse Practitioner Medical Oncology 08/19/22
--- OUTSIDE RECORDS SUMMARY | 2024-12-14 10:36 | XMS_ITS | Encounter Summary ---
Author Organization [facility] Address [address] [facility] Attn: Epic Prelude ADT [place]IL[place] EDUARD[place] [address] Care Team Providers Care Music Leader Name Role Phone Janusz Soto MD Primary Care Provider Unavailable Encounter Details Date Type Department Care Team (Late st Contact Info) Description 11/18/1995 Outpatient Historical Janusz Soto MD NO ADDRESS ON FILE Social History Tobacco Use Types Packs/Day Years Used Date Smoking Tobacco: Never Assessed Comments Unknown Sex and Gender Information Value Date Recorded Sex Assigned at Not on file Legal Sex Female 4:12 AM ACCOUNT SERVICES ASSOCIATE Gender Identity Not on file Sexual Orientation Not on file documented as of this encounter Plan of Treatment Upcoming Encounters Date Type Department Care Team (Late st Contact Info) Description 12/21/2024 1:15 PM CDT Office Visit [facility] Oncology and Hematology [place] [address] [place] [address] [facility] [address] [place] [address] Roshan Gan MD [address] [facility] [address] [place] [address] documented as of this encounter Visit Diagnoses Not on filedocumented in this encounter Additional Health Concerns Infection Onset Date Last Indicated Resolved Time R/O COVID-19 07/19/2020 07/19/2020 07/26/2021 9:08 PM ACCOUNT SERVICES ASSOCIATE documented as of this encounter Care Teams Music Leader Relationship Specialty Start Date End Date Janusz Soto MD PCP - General 08/30/08 documented as of this encounter
--- OUTSIDE RECORDS SUMMARY | 2024-12-14 10:36 | XMS_ITS | Encounter Summary ---
Author Organization [facility] Address [address] [place] [address] Care Team Providers Care Black Top Raker Name Role Phone Janusz Soto MD Primary Care Provider Unavailable Encounter Details Date Type Department Care Team (Late st Contact Info) Description 07/02/2002 Outpatient Historical [facility] Janusz James MD NO ADDRESS ON FILE Social History Tobacco Use Types Packs/Day Years Used Date Smoking Tobacco: Never Assessed Comments Unknown Sex and Gender Information Value Date Recorded Sex Assigned at Not on file Legal Sex Female 4:12 AM CIRCULATION CREW LEADER Gender Identity Not on file Sexual Orientation Not on file documented as of this encounter Plan of Treatment Upcoming Encounters Date Type Department Care Team (Late st Contact Info) Description 12/21/2024 1:15 PM CDT Office Visit [facility] Oncology and Hematology - [place] [address] [place] [address] [facility] [address] [place] [address] Roshan Gan MD [address] [facility] [address] [place] [address] documented as of this encounter Visit Diagnoses Not on filedocumented in this encounter Additional Health Concerns Infection Onset Date Last Indicated Resolved Time R/O COVID-19 07/19/2020 07/19/2020 07/26/2021 9:08 PM CIRCULATION CREW LEADER documented as of this encounter Care Teams Black Top Raker Relationship Specialty Start Date End Date Janusz Soto MD PCP - General 08/30/08 documented as of this encounter
--- OUTSIDE RECORDS SUMMARY | 2024-12-14 10:36 | XMS_ITS | Encounter Summary ---
Author Organization [facility] Address [address] [place] [address] Phone Care Team Providers Care Supervisor Shop Name Role Phone Janusz Soto MD Primary Care Provider Fredy Cordon MD, Kris Unavailable +1- [phone] Kanchan Dixon ELECTRICAL LOGGING ENGINEER Unavailable +1- [phone] Encounter Details Date Type Department Care Team (Latest Contact Info) Description 10/04/2019 Orders Only [facility] Scanning, Provider Social History Tobacco Use Types Packs/Day Years Used Date Smoking Tobacco: Never Smokeless Tobacco: Never Alcohol Use Standard Drinks/Week Comments No 0 (1 standard drink = 0.6 oz pur e alcohol) Comments Unknown Sex and Gender Information Value Date Recorded Sex Assigned at Not on file Legal Sex Female 11:53 AM CERTIFIED LEGAL INVESTIGATOR Gender Identity Not on file Sexual Orientation Not on file documented as of this encounter Plan of Treatment Not on file documented as of this encounter Procedures Procedure Name Priority Date/Time Associated Diagnosis Comments SCAN - RADIOLOGY/IMAGING 10/04/2019 documented in this encounter Results * SCAN - RADIOLOGY/IMAGING (10/04/2019) Anatomical Region Laterality Modality Other us Provider Scanning Final Result documented in this encounter Visit Diagnoses Not on filedocumented in this encounter Care Teams Supervisor Shop Relationship Specialty Start Date End Date Janusz Soto MD PCP - General 09/14/17 Kris Daniel Jr., MD Medical Oncologist/Director Of Intelligence Medical Oncology 09/14/18 08/18/22 Kanchan Dixon NP [address] [place] [address] Nurse Practitioner Medical Oncology 08/19/22 documented as of this encounter
--- OUTSIDE RECORDS SUMMARY | 2024-12-14 10:36 | XMS_ITS | Encounter Summary ---
Author Organization [facility] Address [address] [place] [address] Care Team Providers Care Workers Compensation Manager Name Role Phone Janusz Soto MD Primary Care Provider Unavailable Encounter Details Date Type Department Care Team (Late st Contact Info) Description 06/25/2004 Outpatient Historical [facility], [address] Janusz Soto MD NO ADDRESS ON FILE Social History Tobacco Use Types Packs/Day Years Used Date Smoking Tobacco: Never Assessed Comments Unknown Sex and Gender Information Value Date Recorded Sex Assigned at Not on file Legal Sex Female 4:12 AM RACING SECRETARY Gender Identity Not on file Sexual Orientation Not on file documented as of this encounter Plan of Treatment Upcoming Encounters Date Type Department Care Team (Late st Contact Info) Description 12/21/2024 1:15 PM CDT Office Visit [facility] Oncology and Hematology - [place] [address] [place] [address] [facility] [address] [place] [address] Roshan Gan MD [address] [facility] [address] [place] [address] documented as of this encounter Visit Diagnoses Not on filedocumented in this encounter Additional Health Concerns Infection Onset Date Last Indicated Resolved Time R/O COVID-19 07/19/2020 07/19/2020 07/26/2021 9:08 PM RACING SECRETARY documented as of this encounter Care Teams Workers Compensation Manager Relationship Specialty Start Date End Date Janusz Soto MD PCP - General 08/30/08 documented as of this encounter
--- OUTSIDE RECORDS SUMMARY | 2024-12-14 10:36 | XMS_ITS | Encounter Summary ---
Author Organization [facility] Address [address] [place] [address] Care Team Providers Care Insurance Billing Clerk Name Role Phone Janusz Soto MD Primary Care Provider Unavailable Encounter Details Date Type Department Care Team (Late st Contact Info) Description 07/03/2008 Outpatient Historical [facility] Jerri Cr MD [address] [place] [address] Social History Tobacco Use Types Packs/Day Years Used Date Smoking Tobacco: Never Assessed Comments Unknown Sex and Gender Information Value Date Recorded Sex Assigned at Not on file Legal Sex Female 4:12 AM TRAFFIC REPRESENTATIVE Gender Identity Not on file Sexual Orientation Not on file documented as of this encounter Plan of Treatment Upcoming Encounters Date Type Department Care Team (Late st Contact Info) Description 12/21/2024 1:15 PM CDT Office Visit [facility] Oncology and Hematology - [place] [address] [facility] [address] [place] [address] Roshan Gan MD [address] [facility] [address] [place] [address] documented as of this encounter Visit Diagnoses Not on filedocumented in this encounter Additional Health Concerns Infection Onset Date Last Indicated Resolved Time R/O COVID-19 07/19/2020 07/19/2020 07/26/2021 9:08 PM TRAFFIC REPRESENTATIVE documented as of this encounter Care Teams Insurance Billing Clerk Relationship Specialty Start Date End Date Janusz Soto MD PCP - General 08/30/08 documented as of this encounter
--- OUTSIDE RECORDS SUMMARY | 2024-12-14 10:36 | XMS_ITS | Encounter Summary ---
Author Organization [facility] Address [address] [place] [address] Care Team Providers Care Mount Loader Name Role Phone Janusz Soto MD Primary Care Provider Unavailable Encounter Details Date Type Department Care Team (Late st Contact Info) Description 07/17/2003 Outpatient Historical [facility], [address] Janusz Soto MD NO ADDRESS ON FILE Social History Tobacco Use Types Packs/Day Years Used Date Smoking Tobacco: Never Assessed Comments Unknown Sex and Gender Information Value Date Recorded Sex Assigned at Not on file Legal Sex Female 4:12 AM STUNT WOMAN Gender Identity Not on file Sexual Orientation Not on file documented as of this encounter Plan of Treatment Upcoming Encounters Date Type Department Care Team (Late st Contact Info) Description 12/21/2024 1:15 PM CDT Office Visit [facility] Oncology and Hematology - [place] [address] [place] [address] [facility] [address] [place] [address] Roshan Gan MD [address] [facility] [address] [place] [address] documented as of this encounter Visit Diagnoses Not on filedocumented in this encounter Additional Health Concerns Infection Onset Date Last Indicated Resolved Time R/O COVID-19 07/19/2020 07/19/2020 07/26/2021 9:08 PM STUNT WOMAN documented as of this encounter Care Teams Mount Loader Relationship Specialty Start Date End Date Janusz Soto MD PCP - General 08/30/08 documented as of this encounter
--- OUTSIDE RECORDS SUMMARY | 2024-12-14 10:36 | XMS_ITS | Encounter Summary ---
Author Organization [facility] Address [address] [place] [address] Care Team Providers Care Sales Agent Insurance Name Role Phone Janusz Soto MD Primary Care Provider Unavailable Encounter Details Date Type Department Care Team (Late st Contact Info) Description 01/26/1999 Outpatient Historical [facility] Janusz Soto MD NO ADDRESS ON FILE Social History Tobacco Use Types Packs/Day Years Used Date Smoking Tobacco: Never Assessed Comments Unknown Sex and Gender Information Value Date Recorded Sex Assigned at Not on file Legal Sex Female 4:12 AM RAIL EXPRESS CLERK Gender Identity Not on file Sexual Orientation Not on file documented as of this encounter Plan of Treatment Upcoming Encounters Date Type Department Care Team (Late st Contact Info) Description 12/21/2024 1:15 PM CDT Office Visit [facility] Oncology and Hematology - [place] [address] [place] [address] [facility] [address] [place] [address] Roshan Gan MD [address] [facility] [address] [place] [address] documented as of this encounter Visit Diagnoses Not on filedocumented in this encounter Additional Health Concerns Infection Onset Date Last Indicated Resolved Time R/O COVID-19 07/19/2020 07/19/2020 07/26/2021 9:08 PM RAIL EXPRESS CLERK documented as of this encounter Care Teams Sales Agent Insurance Relationship Specialty Start Date End Date Janusz Soto MD PCP - General 08/30/08 documented as of this encounter
--- OUTSIDE RECORDS SUMMARY | 2024-12-14 10:36 | XMS_ITS | Clinical Summary ---
Author Organization [facility] Address [address] [place] [address] Care Team Providers Care Stitcher Tape Controlled Machine Name Role Phone Janusz Soto MD Primary Care Provider Kanchan Dixon CARTRIDGE ASSEMBLING MACHINE ADJUSTER Unavailable +1- [phone] Allergies No known active allergies Medications fluticasone [...] PURPLE 04/25/2021,09/21/2020,08/27/2020 Pneumococcal Conjugate PCV 13 05/11/2019 Surgical History Surgery Date Site/Laterality Comments COLONOSCOPY BREAST BIOPSY BREAST LUMPECTOMY BREAST RECONSTRUCTION right breast Medical History Medical History Date Comments Breast cancer (HCC) Family History Medical History Relation Name Comments Heart disease Father Diabetes Mother Relation Name Status Comments Father Mother Social History Tobacco Use Types Packs/Day Years Used Date Smoking Tobacco: Never Smokeless Tobacco: Never Alcohol Use Standard Drinks/Week Comments No 0 (1 standard drink = 0.6 oz pur e alcohol) Comments Unknown Sex and Gender Information Value Date Recorded Sex Assigned at Not on file Legal Sex Female 11:53 AM JOB MOLDER Gender Identity Not on file Sexual Orientation Not on file Obstetrics History Last Filed Vital Signs Vital Sign Reading Time Taken Comments Blood Pressure 134/84 08/15/2024 5:01 PM JOB MOLDER Pulse 96 08/15/2024 5:01 PM JOB MOLDER Temperature 36.8 C (98.3 F) 08/15/2024 5:01 PM JOB MOLDER Respiratory Rate 24 08/15/2024 5:01 PM JOB MOLDER Oxygen Saturation 96% 08/15/2024 5:01 PM JOB MOLDER Inhaled Oxygen Concentration - - Weight 111.6 kg (246 lb) 08/15/2024 5:01 PM JOB MOLDER Height 167.6 cm (5' 6) 09/09/2022 3:27 PM JOB MOLDER Body Mass Index 39.71 09/09/2022 3:27 PM JOB MOLDER Plan of Treatment Health Maintenance Due Date Last Done Comments Breast Cancer Screening-Mammogram 1954 Colon Cancer Screening-Colonoscopy 1954 Depression Screening 1954 Fall Risk Assessment 1954 Hepatitis C Screening 1954 Osteoporosis Screening-Bone Density Scan 1954 DTaP/Tdap/Td Vaccine (1 - Tdap) 1965 Hepatitis B Screening 01/28/1972 Zoster Vaccine (1 of 2) 01/28/2004 Well Visit 65+ 2019 Pneumococcal vaccine 65+ (2 of 2 - PPSV23) 05/11/2020 05/11/2019 Covid-19 Vaccine (4 2023-2 5 season) 2024 04/25/2021, 09/21/2020, 08/27/2020 Influenza Vaccine (Season Ended) 2025 05/11/2019, 05/16/2018, 05/13/2018, Additional history exists Insurance MEDICARE [facility] MEDICARE [facility] MEDICARE SUPPLEMENT Member Subscriber Plan / Payer (Ef fective 2019-Present) Name:Elise Leonardo Relation to Subscriber:Self Name:Elise Leonardo Payer ID:[id number] Group ID:[id number] Type:COMMERCIAL Address: [address] [place] [id number] Care Teams Stitcher Tape Controlled Machine Relationship Specialty Start Date End Date Jaunsz Soto MD PCP - General 09/14/17 Kanchan Dixon NP [address] [place] [address] Nurse Practitioner Medical Oncology 08/19/22
--- OUTSIDE RECORDS SUMMARY | 2024-12-14 10:36 | XMS_ITS | Encounter Summary ---
Author Organization [facility] Address [address] [facility] Attn: Epic Prelude ADT HILDA EDUARDO [address] Care Team Providers Care Evaluation Specialist Name Role Phone Janusz Soto MD Primary Care Provider Unavailable Encounter Details Date Type Department Care Team (Late st Contact Info) Description 05/23/1994 Outpatient Historical Janusz Soto MD NO ADDRESS ON FILE Social History Tobacco Use Types Packs/Day Years Used Date Smoking Tobacco: Never Assessed Comments Unknown Sex and Gender Information Value Date Recorded Sex Assigned at Not on file Legal Sex Female 4:12 AM CHILD CARE LEADER Gender Identity Not on file Sexual Orientation Not on file documented as of this encounter Plan of Treatment Upcoming Encounters Date Type Department Care Team (Late st Contact Info) Description 12/21/2024 1:15 PM CDT Office Visit [facility] Oncology and Hematology - [place] [address] [place] [address] [facility] 200 [place] [address] Roshan Gan MD [address] [facility] [address] [place] [address] documented as of this encounter Visit Diagnoses Not on filedocumented in this encounter Additional Health Concerns Infection Onset Date Last Indicated Resolved Time R/O COVID-19 07/19/2020 07/19/2020 07/26/2021 9:08 PM CHILD CARE LEADER documented as of this encounter Care Teams Evaluation Specialist Relationship Specialty Start Date End Date Janusz Soto MD PCP - General 08/30/08 documented as of this encounter
--- OUTSIDE RECORDS SUMMARY | 2024-12-14 10:36 | XMS_ITS | Encounter Summary ---
Author Organization [facility] Address [address] [place] [address] Care Team Providers Care Manufacturing Team Leader Name Role Phone Janusz oSto MD Primary Care Provider Unavailable Encounter Details Date Type Department Care Team (Late st Contact Info) Description 07/03/2001 Outpatient Historical [facility] Janusz James MD NO ADDRESS ON FILE Social History Tobacco Use Types Packs/Day Years Used Date Smoking Tobacco: Never Assessed Comments Unknown Sex and Gender Information Value Date Recorded Sex Assigned at Not on file Legal Sex Female 4:12 AM TELEPHONE SWITCHBOARD OPERATOR Gender Identity Not on file Sexual Orientation Not on file documented as of this encounter Plan of Treatment Upcoming Encounters Date Type Department Care Team (Late st Contact Info) Description 12/21/2024 1:15 PM CDT Office Visit [facility] Oncology and Hematology - [place] [address] [place] [address] [facility] 200 [place] [address] Roshan Gan MD [address] [facility] [address] [place] [address] documented as of this encounter Visit Diagnoses Not on filedocumented in this encounter Additional Health Concerns Infection Onset Date Last Indicated Resolved Time R/O COVID-19 07/19/2020 07/19/2020 07/26/2021 9:08 PM TELEPHONE SWITCHBOARD OPERATOR documented as of this encounter Care Teams Manufacturing Team Leader Relationship Specialty Start Date End Date Janusz Soto MD PCP - General 08/30/08 documented as of this encounter
--- OUTSIDE RECORDS SUMMARY | 2024-12-14 10:36 | XMS_ITS | Encounter Summary ---
Author Organization [facility] Address [address] [place] [address] Care Team Providers Care Surgical Forceps Fabricator Name Role Phone Janusz Soto MD Primary Care Provider Unavailable Encounter Details Date Type Department Care Team (Late st Contact Info) Description 02/08/2000 Outpatient Historical [facility], [address] Janusz Soto MD NO ADDRESS ON FILE Social History Tobacco Use Types Packs/Day Years Used Date Smoking Tobacco: Never Assessed Comments Unknown Sex and Gender Information Value Date Recorded Sex Assigned at Not on file Legal Sex Female 4:12 AM FIRE SUPPRESSION CAPTAIN Gender Identity Not on file Sexual Orientation Not on file documented as of this encounter Plan of Treatment Upcoming Encounters Date Type Department Care Team (Late st Contact Info) Description 12/21/2024 1:15 PM CDT Office Visit [facility] Oncology and Hematology - [place] [address] [place] [address] [facility] [address] [place] [address] Roshan Gan MD [address] [facility] [address] [place] [address] documented as of this encounter Visit Diagnoses Not on filedocumented in this encounter Additional Health Concerns Infection Onset Date Last Indicated Resolved Time R/O COVID-19 07/19/2020 07/19/2020 07/26/2021 9:08 PM FIRE SUPPRESSION CAPTAIN documented as of this encounter Care Teams Surgical Forceps Fabricator Relationship Specialty Start Date End Date Janusz Soto MD PCP - General 08/30/08 documented as of this encounter
--- OUTSIDE RECORDS SUMMARY | 2024-12-14 10:36 | XMS_ITS | Encounter Summary ---
Author Organization [facility] Address [address] [place] [address] Care Team Providers Care Puppy Walker Name Role Phone Janusz Soto MD Primary Care Provider Unavailable Encounter Details Date Type Department Care Team (Late st Contact Info) Description 07/02/1999 Outpatient Historical [facility],NON-PATIENT Janusz Soto MD NO ADDRESS ON FILE Social History Tobacco Use Types Packs/Day Years Used Date Smoking Tobacco: Never Assessed Comments Unknown Sex and Gender Information Value Date Recorded Sex Assigned at Not on file Legal Sex Female 4:12 AM NETWORK ENGINEER Gender Identity Not on file Sexual Orientation Not on file documented as of this encounter Plan of Treatment Upcoming Encounters Date Type Department Care Team (Late st Contact Info) Description 12/21/2024 1:15 PM CDT Office Visit [facility] Oncology and H[facility] [place] [address] [place] [address] [facility] [address] [place] [address] Roshan Gan MD [address] [facility] [address] [place] [address] documented as of this encounter Visit Diagnoses Not on filedocumented in this encounter Additional Health Concerns Infection Onset Date Last Indicated Resolved Time R/O COVID-19 07/19/2020 07/19/2020 07/26/2021 9:08 PM NETWORK ENGINEER documented as of this encounter Care Teams Puppy Walker Relationship Specialty Start Date End Date Janusz Soto MD PCP - General 08/30/08 documented as of this encounter
[2024-12-14 11:37] LABS: Basophils Absolute Auto 0.1 K/mm3 (0.0-0.1); Basophils Percent Auto 0.6 % (0.2-1.2); Eosinophils Absolute Auto 0.2 K/mm3 (0-0.3); Eosinophils Percent Auto 2.7 % (0-4.4); Hematocrit 47.8 % (37.0-47.0); Hemoglobin 15.5 g/dL (12.0-15.0); Immature Granulocyte Absolute 0.06 K/mm3 (0.00-0.031); Immature Granulocyte Percent A 0.7 % (0-0.5); Lymphocytes Absolute Auto 1.92 K/mm3 (0.9-3.2); Lymphocytes Percent Auto 23.2 % (18.3-44.2); Mean Corpuscular HGB Conc 32.4 g/dl (32-36); Mean Corpuscular Hemoglobin 29.5 pg (26-34); Mean Corpuscular Volume 90.9 fl (80-100); Mean Platelet Volume 11.3 fl (7.4-10.4); Monocytes Absolute Auto 0.7 K/mm3 (0.1-0.6); Monocytes Percent Auto 8.2 % (2.6-8.5); Neutrophils Absolute Auto 5.4 K/mm3 (1.3-6.7); Neutrophils Percent Auto 64.6 % (45.5-73.1); Platelet Count Result 269 k/mm3 (150-375); Red Blood Count 5.26 M/mm3 (4.2-5.4); Red Cell Distribution Width 13.3 % (11.5-14.5); White Blood Count 8.3 K/mm3 (4.5-10.0)
[2024-12-14 11:52] LABS: Alanine Aminotransferase 29 U/L (6-35); Albumin Level 4.4 g/dL (3.5-5.1); Alkaline Phosphatase 77 U/L (38-126); Anion Gap 13 mmol/L (4-12); Aspartate Amino Transferase 34 U/L (14-36); Bilirubin,Total 0.5 mg/dL (0.2-1.3); Blood Urea Nitrogen 24 mg/dL (7-17); Calcium 9.4 mg/dL (8.4-10.2); Carbon Dioxide 25 mmol/L (22-30); Chloride 99 mmol/L (98-107); Estimated Glomerular Filt Rate > 60; Glucose 328 mg/dL (65-110); Potassium 4.5 mmol/L (3.4-5.0); Sodium 137 mmol/L (137-145)
[2024-12-14 11:58] LABS: Immunoglobulin A 385 mg/dL (70-400); Immunoglobulin G 843 mg/dL (700-1600); Immunoglobulin M 163 mg/dL (40-230)
[2024-12-15 06:48] LABS: Protein, Total 6.8 g/dL (6.1-8.1)
[2024-12-15 13:40] LABS: Kappa\\Lambda Light Chains 1.32 (0.26-1.65); Lambda Light Chain 15.8 mg/L (5.7-26.3)
[2024-12-17 12:13] LABS: Alpha 1 Globulin 0.3 g/dL (0.2-0.3); Alpha 2 Globulin 0.8 g/dL (0.5-0.9); Beta 1 Globulin 0.5 g/dL (0.4-0.6); Gamma Globulin 0.8 g/dL (0.8-1.7)
== END 2024-12-14 10:28 | disposition home or self-care (01) ==
LOC: ANHLAB 10:33
PROVIDERS: Visit Provider Internal Medicine Hematology & Oncology
DX: D72.9 Disorder of white blood cells, unspecified (principal)
CPT/HCPCS: 36415; 80053; 82784; 83883; 84155; 84165; 85025